=== PATIENT | female | born 1960 | race Two or more races ===

== ENCOUNTER 2024-08-19 08:37 | Emergency (ER) | payer OTHER ==
[~2024-08-19] VITALS: Ht 149.9 cm; Wt 71.2 kg
[2024-08-19 10:21] LABS: CALCIUM 8.8 mg/dL (8.5-10.1); CREATININE SERUM 0.71 mg/dL (0.55-1.02); GFR 82.88; POTASSIUM 4.13 mEq/L (3.5-5.1)
[2024-08-19 10:22] LABS: HEMATOCRIT 38.3 % (36.0-45.00); HEMOGLOBIN 12.8 g/dL (12.0-15.00); MEAN CORPUSCULAR HEMOGLOBIN 28.6 pg (27.00-32.0); MEAN CORPUSCULAR HGB CONC 33.3 g/dl (32.0-36.0); PLATELET COUNT 203 K/uL (150-450); RED BLOOD COUNT 4.45 M/uL (4.00-6.00); RED CELL DISTRIBUTION WIDTH 14.1 % (11.5-14.5)
[2024-08-19] MEDS ORDERED: GUAIFEN/DEXTROMETHORPHAN/PE 10 ML BLIST.PACK PO ONE ×2 (10:43→10:45)
[2024-08-19] MEDS ORDERED: DEXAMETHASONE SODIUM PHOSPHATE 4 MG/ML VIAL ONE (10:43)
[2024-08-19] MEDS ORDERED: CETIRIZINE HCL 5MG/5ML BLIST.PACK PO ONE (10:44)
[2024-08-19] MEDS ORDERED: DEXAMETHASONE SODIUM PHOSPHATE 4 MG/ML VIAL IM ONE (10:45)
[2024-08-19] MEDS ORDERED: CETIRIZINE HCL 5 MG/5 ML ML PO ONE (10:45)
[2024-08-19] MEDS ORDERED: MUCINEX DM ER1 EAC1 PO (10:47)
== END 2024-08-19 10:50 | disposition home or self-care (01) ==
LOC: ER 08:39
PROVIDERS: General Practice
DX: J10.1 Influenza due to other identified influenza virus with other respiratory manifestations (principal); Z20.822 Contact with and (suspected) exposure to COVID-19
CPT/HCPCS: 36415; 96372; 99282; J1100